=== PATIENT | male | born 1990 | race Caucasian/White ===

== ENCOUNTER → 2019-01-11 17:43 | Outpatient (CLI) | payer BC, SELFPAY ==
--- NOTE | 2019-01-11 17:54 | CT_ITS ---
STUDY: CT MAXILLOFACIAL SINUSES REASON FOR EXAM: Male, 28 years old. Sinusitis, prior deviated septum surgery. RADIATION DOSAGE (If Supplied By Facility): CTDIvol = ( 33.45 ) mGy, DLP = ( 759.64 ) mGycm TECHNIQUE: The patient was scanned in a multi detector CT scanner. High resolution axial imaging was performed without the administration of intravenous contrast material. Sagittal and coronal images were reconstructed. Individualized dose optimization techniques were used for this CT. COMPARISON: None. FINDINGS: FRONTAL SINUSES: Normal aeration, without mucosal inflammatory disease. ETHMOIDAL SINUSES: Normal aeration, without mucosal inflammatory disease. MAXILLARY SINUSES: Tiny mucous retention cyst at the base of the left maxillary sinus. SPHENOIDAL SINUSES: Normal aeration, without mucosal inflammatory disease. Septum with evidence of prior surgery. Normal appearance of the turbinates. Patent nasal passages. Mild narrowing of the nasopharyngeal airway. Mild prominence of the adenoids. Mild prominence of the circumferential tonsils. Shotty cervical lymph nodes none pathologically enlarged. Mastoid air cells on the left are partially opacified. Prominent soft tissue thickening within the middle ear cavity surrounding the bony ossicles, the middle ear cavity partially pneumatized. Normal appearance of the left external auditory canal, internal auditory canal, cochlea and semicircular canals. On the right, the mastoid air cells and middle ear cavity are completely opacified. Bony ossicles appear grossly normal. External auditory mediastinum normal. Internal auditory canal, cochlea and semicircular canals appear grossly normal. CT/Sinus/Facial Bone IMPRESSION: Partial opacification of the left mastoids, soft tissue thickening within the left liver cavity. Complete opacification of the right mastoids and right middle ear cavity. Minimal mucous retention cyst at the base of the left maxillary sinus, paranasal sinuses otherwise clear. Prominence of the adenoids and tonsils. Mild narrowing of the nasopharyngeal airway. Electronically Signed: Andrew Santos MD at 19:57 EST Tel , Service support ,
== END ==
PROVIDERS: Family Provider Family Medicine; PCP Family Medicine; Referring Provider Otolaryngology; Visit Provider Otolaryngology
DX: J32.9 Chronic sinusitis, unspecified (principal)
CPT/HCPCS: 70486

== ENCOUNTER 2019-01-31 12:43 | Day surgery (SDC) | payer BC, SELFPAY ==
--- NOTE | 2019-01-26 16:38 | EKG12_ITS ---
Test Reason : PRE OP Blood Pressure : / mmHG Vent. Rate : 103 BPM Atrial Rate : 103 BPM P-R Int : 150 ms QRS Dur : 090 ms QT Int : 332 ms P-R-T Axes : 056 084 036 degrees QTc Int : 434 ms Sinus tachycardia Otherwise normal ECG No previous ECGs available Confirmed by ANNIKA BAUGH, SUGAR ([id number]), industrial editor SAMI AMBROCIO ([id number]) on 01/30/2019 1:11:43 PM Referred By: Alon Belcher Confirmed By:SUGAR ROBLERO MD
[2019-01-26 17:12] LABS: Hematocrit 47.3 % (40-54); Hemoglobin 15.4 g/dl (13.0-16.5); Mean Corp Hgb Conc 32.6 g/gl (32-36); Mean Corpuscular Hgb 28.6 pg (27.0-32.0); Mean Corpuscular Volume 87.9 fL (80-94); Mean Platelet Vol. 10.4 fl (6.2-12.0); Platelet Count 274 K/mm3 (150-450); RBC Distribution Width CV 13.9 % (11.6-14.6); Red Blood Count 5.38 M/mm3 (4.6-6.2); White Blood Count 10.2 K/mm3 (4.4-11.0)
[2019-01-26 17:13] LABS: Scan Indicated on CBC? Y/N NO
[2019-01-31 13:09] VITALS: BP 140/88; PULSE 113; RESP 18; TEMP 36.1; O2SAT 96; BMI 43.4
--- NOTE | 2019-01-31 14:18 | DCINST_ITS ---
You will use the following diet at home:: No restrictions Discharge Activity: May not drive while taking narcotic pain medications. Call your doctor if your incision/area has: Sudden Increased Bleeding Additional Dressing/Incision Instructions:: saline spray to nose 5 times daily. mupirocin ointment to nostrils twice daily. Allergies/Adverse Reactions: Allergies No Known Allergies Allergy (Verified 01/24/19 09:13) Medications to take at Discharge Neomycin/Polymyxin B/Hydrocort [Tbxjvbmk-Zgwwvssoq-Ng Ear Susp] 10 ml OT TID 01/24/19 Acetaminophen/Codeine #3 [Tylenol#3] 1 tab PO Q6H PRN PRN #20 tab 01/31/19 Sulfamethoxazole/Trimethoprim [Bactrim 400-80 mg Tablet] 1 ea PO BID #10 tab 01/31/19 The following prescriptions were given: Acetaminophen/Codeine #3 [Tylenol#3] 1 tab PO Q6H PRN PRN #20 tab PRN Reason: Pain Sulfamethoxazole/Trimethoprim [Bactrim 400-80 mg Tablet] 1 ea PO BID #10 tab Orders to be completed after discharge: 12 Lead EKG [[facility]] Time Frame: 01/24/19, Facility: [facility], Location: Cardiovascular Services CBC W/Diff, Automated Time Frame: 01/24/19, Location: Laboratory Primary Care Physician: Pal Barrett DO [Primary Care Provider] - Test Results: Test results from this visit will be discussed in further detail at your follow- up appointment, if applicable. Please Follow Up With: Alon Belcher MD When: 1 week
--- NOTE | 2019-01-31 14:19 | PCM.OPRPT ---
Problem List (1) Nasal congestion Status: Chronic (2) Nasal valve collapse Status: Chronic (3) Nasal turbinate hypertrophy Status: Chronic Report of Operation Date of Procedure: 01/31/19 Pre-Operative Diagnosis: 1. nasal congestion. 2. inferior turbinate hypertrophy, right and left. 3. nasal septal deflection. 4. internal nasal valve dysfunction, right and left Post-Operative Diagnosis: 1. nasal congestion. 2. inferior turbinate hypertrophy, right and left. 3. nasal septal deflection. 4. internal nasal valve dysfunction, right and left Surgery/Procedure Performed:: 1. septoplasty. 2. submucous resection inferior turbinates, right and left. 3. correction internal nasal valve collapse, right and left Type of Anesthesia:: General Description of Procedure: on the day of the procedure, after appropriate informed consent was obtained, the patient was brought to the operating room and placed in supine position on the operating table. he was placed under general endotracheal anesthesia by the anesthesiologist. the endotracheal tube was secured, the eyes were taped. the table was rotated 90 degrees toward the surgeon. the septum was injected with lidocaine/epinephrine, the nose was decongested with oxymetazoline soaked pledgets. an inverted V columellar incision was made with a miami blade. this traversed into marginal incisions on the right then left using 3 point retraction. the lower lateral cartilages, the scroll region and the upper lateral cartilages were all skeletonized with an iris scizzor. the anterior septal angle was located between the medial crura and dissected with the bovie. submucoperichondrial planes were developed on the right then left with a christopher elevator. these were taken posteriorly to the bony cartilaginous junction and inferiorly to the maxillary crest. given the patient's previous septoplasty and severe anterior and superior deviations, a 1cm strut was preserved off of the keystone area and an anterior septal reconstruction was performed after the remainder of the septum was removed. this was placed as an internal head of english graft on the left, sutured with 4-0 PDS. it was also sutured to the maxillary crest. a 1cm by 2mm head of english graft was placed on the right between the septum and right upper lateral cartilage. deviated portions of the perpendicular plate of the ethmoid and vomer were resected with a amairani francois. the submucoperichodrial flaps were closed with numerous quilting sutures with 4-0 chromic, several incorporating the ASR. the head of the right inferior turbinate was injected with lidocaine/epinephrine. an incision was made in the head of the inferior turbinate witha #15 blade. this was dissected submucosally with a christopher elevator, reduced using suction electrocautery and outfractured using a boies elevator. the head of the left inferior turbinate was injected with lidocaine/epinephrine. an incision was made in the head of the inferior turbinate witha #15 blade. this was dissected submucosally with a christopher elevator, reduced using suction electrocautery and outfractured using a boies elevator. on the right, the latera trocar system was loaded with an implant. after the appropriate external markings were made with the template, the ala was everted using a double pronged skin hook. the vestibular skin was punctured with the trocar and advanced superficial to the upper lateral cartilage and nasal bones. it was deployed and the trocar was removed. on the left, the latera trocar system was loaded with an implant. after the appropriate external markings were made with the template, the ala was everted using a double pronged skin hook. the vestibular skin was punctured with the trocar and advanced superficial to the upper lateral cartilage and nasal bones. it was deployed and the trocar was removed. the inverted V incision was closed with 7-0 vicryl. umana splints were sutured into place and a dorsal nasal splint was placed. the table was rotated 90 degrees toward the anesthesiologist and subsequently extubated uneventfully. he was transferred to the PACU in stable condition.
--- NOTE | 2019-01-31 14:30 | OP.PCM_ITS ---
Problem List (1) Nasal congestion Status: Chronic (2) Nasal valve collapse Status: Chronic (3) Nasal turbinate hypertrophy Status: Chronic Report of Operation Date of Procedure: 01/31/19 Pre-Operative Diagnosis: 1. nasal congestion. 2. inferior turbinate hypertrophy, right and left. 3. nasal septal deflection. 4. internal nasal valve dysfunction, right and left Post-Operative Diagnosis: 1. nasal congestion. 2. inferior turbinate hypertrophy, right and left. 3. nasal septal deflection. 4. internal nasal valve dysfunction, right and left Surgery/Procedure Performed:: 1. septoplasty. 2. submucous resection inferior turbinates, right and left. 3. correction internal nasal valve collapse, right and left Type of Anesthesia:: General Description of Procedure: on the day of the procedure, after appropriate informed consent was obtained, the patient was brought to the operating room and placed in supine position on the operating table. he was placed under general endotracheal anesthesia by the anesthesiologist. the endotracheal tube was secured, the eyes were taped. the table was rotated 90 degrees toward the surgeon. the septum was injected with lidocaine/epinephrine, the nose was decongested with oxymetazoline soaked pledgets. an inverted V columellar incision was made with a santee sioux blade. this traversed into marginal incisions on the right then left using 3 point retraction. the lower lateral cartilages, the scroll region and the upper lateral cartilages were all skeletonized with an iris scizzor. the anterior septal angle was located between the medial crura and dissected with the bovie. submucoperichondrial planes were developed on the right then left with a christopher elevator. these were taken posteriorly to the bony cartilaginous junction and inferiorly to the maxillary crest. given the patient's previous septoplasty and severe anterior and superior deviations, a 1cm strut was preserved off of the keystone area and an anterior septal reconstruction was performed after the remainder of the septum was removed. this was placed as an internal architectural draftsperson graft on the left, sutured with 4-0 PDS. it was also sutured to the maxillary crest. a 1cm by 2mm architectural draftsperson graft was placed on the right between the septum and right upper lateral cartilage. deviated portions of the perpendicular plate of the ethmoid and vomer were resected with a amairani francois. the submucoperichodrial flaps were closed with numerous quilting sutures with 4-0 chromic, several incorporating the ASR. the head of the right inferior turbinate was injected with lidocaine/epinephrine. an incision was made in the head of the inferior turbinate witha #15 blade. this was dissected submucosally with a christopher elevator, reduced using suction electrocautery and outfractured using a boies elevator. the head of the left inferior turbinate was injected with lidocaine/epinephrine. an incision was made in the head of the inferior turbinate witha #15 blade. this was dissected submucosally with a christopher elevator, reduced using suction electrocautery and outfractured using a boies elevator. on the right, the latera trocar system was loaded with an implant. after the appropriate external markings were made with the template, the ala was everted using a double pronged skin hook. the vestibular skin was punctured with the trocar and advanced superficial to the upper lateral cartilage and nasal bones. it was deployed and the trocar was removed. on the left, the latera trocar system was loaded with an implant. after the appropriate external markings were made with the template, the ala was everted using a double pronged skin hook. the vestibular skin was punctured with the trocar and advanced superficial to the upper lateral cartilage and nasal bones. it was deployed and the trocar was removed. the inverted V incision was closed with 7-0 vicryl. umana splints were sutured into place and a dorsal nasal splint was placed. the table was rotated 90 degrees toward the anesthesiologist and subsequently extubated uneventfully. he was transferred to the PACU in stable condition.
[2019-01-31] MEDS: Oxymetazoline 0.05% 1 SPRAY SPRAY.BTL 15 SPRAY (15:00)
[2019-01-31] MEDS: Mupirocin Ointment 22gm Tube 1 APPLIC (15:00)
[2019-01-31 16:46] VITALS: BP 140/88; BP 151/85; PULSE 81; RESP 16; TEMP 36.3; O2SAT 94
[2019-01-31 17:00] VITALS: BP 140/88; BP 143/82; PULSE 82; RESP 16; O2SAT 94
[2019-01-31 17:15] VITALS: BP 140/88; BP 155/90; PULSE 84; RESP 16; O2SAT 93
[2019-01-31 17:30] VITALS: BP 140/88; BP 149/88; PULSE 87; RESP 18; TEMP 36.9; O2SAT 95
[2019-01-31] MEDS: HYDROcodone Bitartrate/Apap 5/325 Tablet PO (18:10)
[2019-01-31 19:16] VITALS: BP 140/88; BP 158/63; PULSE 77; RESP 16; TEMP 36.7; O2SAT 94
== END 2019-01-31 19:17 | disposition home or self-care (01) ==
LOC: SDC 12:49 → AC 12:50
PROVIDERS: Family Provider Family Medicine; PCP Family Medicine; Referring Provider Otolaryngology; Visit Provider Otolaryngology
PROC: (CPT 30140; principal; 2019-01-31 14:05)
DX: J34.2 Deviated nasal septum (principal); M95.0 Acquired deformity of nose; J34.3 Hypertrophy of nasal turbinates; R09.81 Nasal congestion
CPT/HCPCS: 00160; 30140; 30520; 36415; 85027; 93005; J7120

== ENCOUNTER → 2019-05-22 | Outpatient (CLI) | payer OTHER, SELFPAY ==
[2019-05-22 12:53] LABS: ALB/GLOB Ratio 0.8 RATIO (0.9-2.4); AST(SGOT) 109 U/L (15-37); Alanine Aminotransfer ALT/SGPT 151 U/L (16-61); Albumin, Serum 3.3 g/dL (3.2-5.0); Alkaline Phosphatase 78 U/L (45-117); Anion Gap 5 (5-15); BUN 11 mg/dL (7-18); BUN/Creat Ratio 13.9 RATIO (10-20); Calcium,Total 8.9 mg/dL (8.5-10.1); Chloride 103 mmol/L (98-107); Cholesterol 196 mg/dL (200); Creatinine, Serum 0.79 mg/dL (0.70-1.30); EST Glomerular Filtration Rate 122 mL/min (>60); Est Glom Filt Rate - Afr Amer 148 mL/min (>60); Glucose 142 mg/dL (74-106); High Density Lipoprotein 26 mg/dL; Protein, Total 7.3 g/dL (6.4-8.2); Sodium Level 137 mmol/L (136-145); T4 Free Direct 0.91 ng/dL (0.76-1.46); Thyroid Stim Hormone (TSH) 4.06 uIU/mL (0.358-3.74); Triglycerides 426 mg/dL
== END | disposition home or self-care (01) ==
PROVIDERS: Visit Provider Family Medicine
DX: K75.81 Nonalcoholic steatohepatitis (NASH) (principal); I10 Essential (primary) hypertension; R63.5 Abnormal weight gain; E78.1 Pure hyperglyceridemia
CPT/HCPCS: 36415; 80053; 80061; 84439; 84443

== ENCOUNTER → 2019-05-24 | Outpatient (CLI) | payer OTHER, SELFPAY ==
[2019-05-24 12:16] LABS: Hemoglobin A1c 7.7 % (4.2-6.3)
== END | disposition home or self-care (01) ==
LOC: LAB.FUTURE 08:23
PROVIDERS: Family Provider Family Medicine; PCP Family Medicine; Visit Provider Family Medicine
DX: R73.01 Impaired fasting glucose (principal)
CPT/HCPCS: 36415; 83036

== ENCOUNTER → 2020-07-31 08:56 | Outpatient (CLI) | payer OTHER, SELFPAY ==
[2020-07-31 13:36] LABS: ALB/GLOB Ratio 0.7 RATIO (0.9-2.4); AST(SGOT) 71 U/L (15-37); Alanine Aminotransfer ALT/SGPT 119 U/L (16-61); Alkaline Phosphatase 86 U/L (45-117); Anion Gap 5 (5-15); BUN 14 mg/dL (7-18); BUN/Creat Ratio 16.1 RATIO (10-20); Calcium,Total 9.3 mg/dL (8.5-10.1); Chloride 97 mmol/L (98-107); Cholesterol 218 mg/dL (200); Creatinine, Serum 0.87 mg/dL (0.70-1.30); EST Glomerular Filtration Rate 109 mL/min (>60); Est Glom Filt Rate - Afr Amer 132 mL/min (>60); Globulin 4.2 g/dL (2.2-4.2); Glucose 347 mg/dL (74-106); High Density Lipoprotein 21 mg/dL; Potassium 4.2 mmol/L (3.5-5.1); Protein, Total 7.2 g/dL (6.4-8.2); Sodium Level 133 mmol/L (136-145); Triglycerides 1433 mg/dL
[2020-07-31 13:43] LABS: Hemoglobin A1c 10.3 % (3.8-5.6)
== END ==
PROVIDERS: PCP Family Medicine; Visit Provider Family Medicine
DX: E11.9 Type 2 diabetes mellitus without complications (principal); K75.81 Nonalcoholic steatohepatitis (NASH); I10 Essential (primary) hypertension
CPT/HCPCS: 36415; 80053; 80061; 82043; 82570; 83036

== ENCOUNTER → 2021-09-25 17:45 | Outpatient (CLI) | payer OTHER, SELFPAY | PROVIDERS: PCP Family Medicine; Visit Provider Family Medicine | DX: U07.1 COVID-19 (principal) | CPT/HCPCS: 87635; U0005; U0003 ==